=== PATIENT | female | born 1985 | race Caucasian/White ===

== ENCOUNTER → 2017-03-30 | Outpatient (CLI) | payer BC ==
[~2017-03-30] MED LIST: ALBU1AER9 INH; CETICHW4 PO; CETITAB27 PO; FLUT0.15 NAE; FLUT220A INH
--- NOTE | 2017-03-30 17:59 | DIAGNOSTIC IMAGING REPORT ---
PARANASAL SINUSES 4 VIEWS CLINICAL HISTORY: Sinus congestion. FINDINGS: 4 views of the paranasal sinuses are obtained. No prior studies are available for comparison at the time of dictation. The skeletal structures are well mineralized. There is no radiographic evidence of paranasal sinus disease. The sinuses are clear as visualized. The mastoid air cells appear clear. The bony orbits and imaged calvarium are intact as visualized. IMPRESSION: There is no radiographic evidence of significant paranasal sinus disease. Electronically signed by: Ralph Machuca M.D. 03/30/2017 5:58 PM Dictated Date/Time: 03/30/2017 5:56 PM
== END | disposition home or self-care (01) ==
LOC: C.RAD 17:14
PROVIDERS: ATTEND Family Medicine
DX: J01.91 Acute recurrent sinusitis, unspecified (principal)

== ENCOUNTER → 2017-10-04 | Outpatient (CLI) | payer OTHER ==
--- NOTE | 2017-10-04 09:36 | DIAGNOSTIC IMAGING REPORT ---
FUSION CT SINUSES W/O HISTORY: 31 years-old Female J32.9 Chronic sinusitis COMPARISON: Radiographs of the sinuses 03/30/2017 TECHNIQUE: Multiple axial CT images of the paranasal sinuses were obtained without contrast. AptDeco images also submitted. A dose lowering technique was used consistent with the principals of EVI. FINDINGS: Imaged intracranial structures demonstrate no acute abnormality The mastoid air cells and middle ear cavities are clear bilaterally. Moderate to severe mucoperiosteal thickening of the left maxillary sinus with central bubbly secretions. There is moderate periosteal thickening throughout the right maxillary sinus. Moderate to severe left frontal with mild right frontal sinus mucosal thickening. There is moderate mucoperiosteal thickening throughout the ethmoid air cells and bilateral sphenoid sinuses with associated bubbly secretions. There is moderate mucosal thickening of the right sphenoethmoidal recess. The left sphenoethmoidal recess is patent. The right frontoethmoidal recess is patent. The left demonstrate moderate mucoperiosteal thickening. There is mild right and moderate left mucosal thickening of the maxillary ostiomeatal units. No Jaswinder cell identified. The zuleima katie appears normal. No large nito bullosa. Minimal leftward bowing and spurring of the nasal septum. Focal 1.3 cm area of mucosal thickening involves the left nasal turbinate on image 137 series 3. No mass of the nasopharynx identified. No facial bone fracture identified. Evaluation of the soft tissues demonstrates no focal abnormality. IMPRESSION: 1. Multifocal paranasal sinus disease as above includes moderate to severe mucoperiosteal thickening of the left maxillary and left frontal sinuses. 2. Minimal leftward bowing and spurring of the nasal septum. The above report was generated using voice recognition software. It may contain grammatical, syntax or spelling errors. Electronically signed by: David Washington M.D. 10/04/2017 9:35 AM Dictated Date/Time: 10/04/2017 9:28 AM
== END | disposition home or self-care (01) ==
LOC: C.CTS 09:00
DX: J32.9 Chronic sinusitis, unspecified (principal)